=== PATIENT | male | born 1990 | race Caucasian/White ===

== ENCOUNTER → 2017-05-05 | Outpatient (REF) | payer OTHER ==
[2017-05-05 20:04] LABS: ALKALINE PHOSPHATASE 75 U/L (45-117); ALT/SGPT 27 U/L (12-78); ANION GAP 6 MEQ/L (8-16); AST/SGOT 10 U/L (15-37); BILIRUBIN,TOTAL 0.4 MG/DL (0.2-1.0); BLOOD UREA NITROGEN 16 MG/DL (7-18); CALCIUM LEVEL 9.4 MG/DL (8.5-10.1); CARBON DIOXIDE LEVEL 29 MEQ/L (21-32); CHLORIDE LEVEL 105 MEQ/L (98-107); CHOLESTEROL LEVEL 179 MG/DL (<200); CREATININE FOR GFR 1.11 MG/DL (0.70-1.30); GLOMERULAR FILTRATION RATE > 60.0 (>60); GLUCOSE, FASTING 76 MG/DL (70-105); POTASSIUM SERUM 4.2 MEQ/L (3.5-5.1); SODIUM LEVEL 140 MEQ/L (136-145); TRIGLYCERIDES LEVEL 81 MG/DL (<150)
[2017-05-05 20:05] LABS: ALBUMIN 4.4 GM/DL (3.2-5.2); ALBUMIN/GLOBULIN RATIO 1.38 (1.00-1.93); TOTAL PROTEIN 7.6 GM/DL (6.4-8.2)
== END ==
LOC: M LAB REF 18:09
PROVIDERS: ATTEND Family Medicine
DX: Z00.00 Encounter for general adult medical examination without abnormal findings (principal)

== ENCOUNTER 2017-08-29 08:59 | Emergency (ER) | payer OTHER ==
[2017-08-29] MEDS: LORATADINE 10 MG TAB PO (09:50)
[2017-08-29] MEDS: predniSONE 20 MG TAB PO (09:50)
== END 2017-08-29 09:57 | disposition home or self-care (01) ==
LOC: M ED 08:59
DX: T78.40XA Allergy, unspecified, initial encounter (principal); L29.9 Pruritus, unspecified; R21 Rash and other nonspecific skin eruption; L50.9 Urticaria, unspecified
CPT/HCPCS: 99282